=== PATIENT | male | born 1955 | race Caucasian/White ===

== ENCOUNTER → 2019-12-06 11:21 | Outpatient (CLI) | payer MEDICARE, SELFPAY ==
--- NOTE | ~2019-12-06 | XR_ITS ---
XR chest 2V DATE: 12/06/2019 11:32 INDICATION: Hyponatremia, hypoosmolality TECHNIQUE: PA and lateral views COMPARISON: 05/31/2015 PA and lateral chest FINDINGS: Heart size is within upper normal range. There is aortic calcification and tortuosity. No h ilar or mediastinal enlargement. No pulmonary infiltrate or consolidation, pleural effusion or pulmon anisa vascular congestion or pneumothorax. There is degenerative spurring of the thoracic spine. IMPRESSION: No active cardiopulmonary disease or significant change since 05/31/2015 Reviewed, dictated and finalized at location B. 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
== END ==
PROVIDERS: PCP Internal Medicine; Visit Provider Internal Medicine
DX: E87.1 Hypo-osmolality and hyponatremia (principal)
CPT/HCPCS: 71046

== ENCOUNTER 2020-06-04 10:48 | Outpatient (CLI) | payer MEDICARE, SELFPAY ==
--- NOTE | ~2020-06-04 | US_ITS ---
EXAMINATION: US venous doppler [facility] EXAM DATE: 06/04/2020 11:30 INDICATION: Edema, swelling. TECHNIQUE: Multiple grayscale, color flow and Doppler images of the left lower extremity deep venous system were obtained and reviewed. Comparison is made to prior examination from 07/28/2019. FINDINGS: The left common femoral, femoral and profunda veins demonstrate normal color flow, respirat ory variation, augmentation and compressibility. Compressibility, color flow confirmed within the le ft popliteal, posterior tibial, peroneal, and greater saphenous veins. IMPRESSION: 1. No left lower extremity deep venous thrombosis. Reviewed, dictated and finalized at location A.
== END 2020-06-04 10:49 | disposition home or self-care (01) ==
LOC: ANHIMG 10:56
PROVIDERS: PCP Internal Medicine; Visit Provider Internal Medicine
DX: R60.9 Edema, unspecified (principal)
CPT/HCPCS: 93971

== ENCOUNTER 2020-07-01 08:00 | Outpatient (RCR) | payer MEDICARE, SELFPAY ==
--- NOTE | 2020-06-07 16:03 | PTOPEVAL ---
PHYSICAL THERAPY EVALUATION AND PLAN OF CARE 06-07-2020 The PT evaluation was completed and the plan of care is scheduled for 3 x/wk for 5 weeks. Thank you for referring Remington Mathur to [facility]. Please review, sign, date and return this plan of care MIGUELITO. I agree with and certify that the following plan of care is medically necessary. Referring Physician Date Attending Provider: ESTELA Kamara *PT Outpatient Evaluation Start: 06/07/20 14:58 Document 06/07/20 15:15 GUNNER (Rec: 06/07/20 16:03 GUNNER [id number]) Therapy Assessment Status Assessment Status Assessment Status Evaluation Outpatient Past Medical History Past Medical History Source of Past Medical History Patient Neurological History Hx Transient Ischemic Attacks (TIA) Yes: no residual weakness Cardiovascular History Hx Cardiac Arrhythmia Yes: meds Hx Cardiac Catheterization Yes Hx Hypercholesterolemia Yes Hx Hypertension Yes: meds Respiratory History Hx Other Respiratory Disorders Yes: smoker Gastrointestinal History Hx Other Gastrointestinal Disorders Yes: bladder cancer, bladder washe s- 12-13 yr ago Genitourinary History Hx Genitourinary Disorders No Significant History Endocrine History Hx Endocrine Disorders No Significant History Other History Hx Other Medical Conditions Yes: obesity Evaluation Information Problem Diagnosis L LE lymphdedema Onset April 15 2020 Prior Level of Function Activity Level (Last 3 Months) Occupation retired Activity of Daily Living Ability Independent Indoor/Home Mobility Independent Community Mobility Independent Stairs Ability Independent Functional Cognition (Planning, Shopping Independent , Taking Medications) Cooking Yes Cleaning Yes Laundry Yes Shopping Yes Driving Yes Pain Assessment Timing of Pain Assessment Timing of Pain Assessment Assessment Self Report Self Report Pain Level 0 Pain Score Pain Score 0: Self Report Lower Extremity Range of Motion General Lower Extremity Range of Motion Reason Not Measured WNL/Left,WNL/Right Lower Extremity Muscle Strength Testing General Lower Extremity Strength Reason Not Measured WNL/Left,WNL/Right Transfer Assessment Bed Transfer Assessment Sit to Stand Bed Transfer Ability Independent Stand to Sit Bed Transfer Ability Independent Bed Mobility Assessment Bed Mobility Bed Type Mat Overall Bed Mobility Ability Independent Gait Assessment Gait Assessment Ambulation Assistive Devices None Ambulation Ability Independent Lymphedema Evaluation Lymphedema Evalua
--- NOTE | 2020-07-12 09:23 | PCPTNOTE ---
PHYSICAL THERAPY DISCHARGE 07-12-2020 Attending Provider: Sydnee Charles, JESSICA-C Patient:Remington Mathur Date of :1955 Mr. Mathur has received 9 PT sessions, from June 07 to July 01 for the diagnosis of L LE lymphedema. He has improved with circumferential measurement of L LE, from bottom of foot up to 64 cm, is 702.3 cm, reduction of 36.5 cm from initial evaluation. The tissue of his lower leg is without redness and has good skin integrity. Rodney has a new compression knee high, 30-40 mmHg to manage his lymphedema--and is independent with it. And has been educated on self manual lymph drainage and LE exercises. The [employer] is processing the order for him to obtain a home intermittent compression pump to assist him with managing his lymphedema. Rodney will be discharged at this time, the PT goals were achieved. Thank you for referring Mr. Mathur to [facility]. Please review, sign, date and return this discharge summary MIGUELITO. I have been updated about the patient's current status and I agree with discharge from the above service at this time. Referring Physician Date
== END 2020-07-12 11:34 | disposition home or self-care (01) ==
LOC: ANHPT 08:00
PROVIDERS: PCP Internal Medicine; Visit Provider Clinical Nurse Specialist
DX: I89.0 Lymphedema, not elsewhere classified (principal)
CPT/HCPCS: 29581; 97140; 97161

== ENCOUNTER 2020-10-04 10:40 | Outpatient (CLI) | payer MEDICARE, SELFPAY ==
[2020-10-04 11:30] LABS: Anion Gap 4 mmol/L (8-16); Blood Urea Nitrogen 14 mg/dL (9-20); Calcium 9.1 mg/dL (8.4-10.2); Carbon Dioxide 31 mmol/L (22-30); Chloride 91 mmol/L (98-107); Estimated Glomerular Filt Rate > 60; Glucose 113 mg/dL (75-110); Potassium 4.6 mmol/L (3.4-5.0); Sodium 126 mmol/L (137-145)
[2020-10-04 11:32] LABS: Alanine Aminotransferase 29 U/L (4-50); Albumin Level 3.9 g/dL (3.5-5.1); Alkaline Phosphatase 55 U/L (38-126); Aspartate Amino Transferase 31 U/L (17-59); Bilirubin,Total 0.6 mg/dL (0.2-1.3)
[2020-10-04 13:21] LABS: Folic Acid 9.1 ng/mL (2.76->20)
[2020-10-04 13:37] LABS: Basophils Absolute Auto 0.1 K/mm3 (0.0-0.1); Basophils Percent Auto 0.7 % (0.2-1.2); Eosinophils Absolute Auto 0.3 K/mm3 (0-0.3); Hematocrit 44.2 % (42.0-52.0); Hemoglobin 15.4 g/dL (14.0-18.0); Immature Granulocyte Absolute 0.12 K/mm3 (0.00-0.031); Immature Granulocyte Percent A 1.4 % (0-0.5); Lymphocytes Absolute Auto 1.34 K/mm3 (0.9-3.2); Lymphocytes Percent Auto 15.8 % (18.3-44.2); Mean Corpuscular HGB Conc 34.8 g/dl (32-36); Mean Corpuscular Hemoglobin 33.4 pg (26-34); Mean Corpuscular Volume 95.9 fl (80-100); Mean Platelet Volume 8.9 fl (7.4-10.4); Monocytes Absolute Auto 1.3 K/mm3 (0.1-0.6); Monocytes Percent Auto 15.2 % (2.6-8.5); Neutrophils Absolute Auto 5.4 K/mm3 (1.3-6.7); Neutrophils Percent Auto 63.9 % (45.5-73.1); Platelet Count Result 230 k/mm3 (150-375); Red Blood Count 4.61 M/mm3 (4.6-6.20); Red Cell Distribution Width 13.2 % (11.5-14.5); White Blood Count 8.5 K/mm3 (4.5-10.0)
== END 2020-10-04 10:41 | disposition home or self-care (01) ==
LOC: ANHLAB 10:43
PROVIDERS: Clinical Nurse Specialist; PCP Internal Medicine; Visit Provider Internal Medicine
DX: E87.1 Hypo-osmolality and hyponatremia (principal); R60.9 Edema, unspecified; I48.91 Unspecified atrial fibrillation; Z51.81 Encounter for therapeutic drug level monitoring; Z79.01 Long term (current) use of anticoagulants; R41.3 Other amnesia
CPT/HCPCS: 36415; 80048; 80076; 82607; 82746; 84443; 85025

== ENCOUNTER 2021-06-03 11:09 | Outpatient (CLI) | payer MEDICARE, SELFPAY ==
[2021-06-03 11:39] LABS: Basophils Absolute Auto 0.1 K/mm3 (0.0-0.1); Basophils Percent Auto 0.5 % (0.2-1.2); Eosinophils Absolute Auto 0.3 K/mm3 (0-0.3); Eosinophils Percent Auto 3.2 % (0-4.4); Hematocrit 47.2 % (42.0-52.0); Immature Granulocyte Absolute 0.15 K/mm3 (0.00-0.031); Immature Granulocyte Percent A 1.5 % (0-0.5); Lymphocytes Absolute Auto 1.55 K/mm3 (0.9-3.2); Lymphocytes Percent Auto 15.5 % (18.3-44.2); Mean Corpuscular HGB Conc 33.9 g/dl (32-36); Mean Corpuscular Hemoglobin 32.2 pg (26-34); Mean Platelet Volume 8.4 fl (7.4-10.4); Monocytes Absolute Auto 1.3 K/mm3 (0.1-0.6); Monocytes Percent Auto 13.2 % (2.6-8.5); Neutrophils Absolute Auto 6.6 K/mm3 (1.3-6.7); Neutrophils Percent Auto 66.1 % (45.5-73.1); Platelet Count Result 216 k/mm3 (150-375); Red Blood Count 4.97 M/mm3 (4.6-6.20); Red Cell Distribution Width 12.3 % (11.5-14.5)
[2021-06-03 11:53] LABS: Alanine Aminotransferase 34 U/L (4-50); Albumin Level 4.1 g/dL (3.5-5.1); Alkaline Phosphatase 61 U/L (38-126); Anion Gap 5 mmol/L (8-16); Aspartate Amino Transferase 30 U/L (17-59); Bilirubin,Total 0.8 mg/dL (0.2-1.3); Blood Urea Nitrogen 11 mg/dL (9-20); Calcium 9.4 mg/dL (8.4-10.2); Carbon Dioxide 30 mmol/L (22-30); Chloride 91 mmol/L (98-107); Estimated Glomerular Filt Rate > 60; Glucose 99 mg/dL (65-110); Potassium 4.6 mmol/L (3.4-5.0); Sodium 126 mmol/L (137-145)
[2021-06-03 12:21] LABS: Prostate Specific Antigen 0.2 ng/mL (< OR = 4.0)
== END 2021-06-03 11:10 | disposition home or self-care (01) ==
PROVIDERS: PCP Internal Medicine; Visit Provider Clinical Nurse Specialist
DX: I48.91 Unspecified atrial fibrillation (principal); Z12.5 Encounter for screening for malignant neoplasm of prostate
CPT/HCPCS: 36415; 80053; 84153; 84443; 85025; G0103

== ENCOUNTER 2021-06-13 14:22 | Outpatient (CLI) | payer MEDICARE, SELFPAY ==
[2021-06-13 14:54] LABS: Anion Gap 8 mmol/L (8-16); Blood Urea Nitrogen 14 mg/dL (9-20); Calcium 9.7 mg/dL (8.4-10.2); Carbon Dioxide 25 mmol/L (22-30); Chloride 96 mmol/L (98-107); Estimated Glomerular Filt Rate > 60; Glucose 100 mg/dL (65-110); Potassium 4.6 mmol/L (3.4-5.0); Sodium 129 mmol/L (137-145)
== END 2021-06-13 14:23 | disposition home or self-care (01) ==
PROVIDERS: PCP Internal Medicine; Visit Provider Clinical Nurse Specialist
DX: E87.1 Hypo-osmolality and hyponatremia (principal)
CPT/HCPCS: 36415; 80048

== ENCOUNTER → 2021-07-18 08:26 | Outpatient (CLI) | payer MEDICARE, SELFPAY ==
--- NOTE | 2021-08-08 10:36 | WPDSLEEPSTUD ---
Sleep Study Date of Study: 07/18/21 Ordering Provider: Rao Erickson MD Interpreting Physician: Juhi Betancourt MD Sleep Study Type: Polysomnogram Height: 1.68 m Weight: 113.398 kg Body Mass Index: 40.3 Neck Circumference (inches): 20 [place]: 7 Reason for Sleep Study Obstructive sleep apnea with snoring and fatigue Sleep History Remington Mathur is a 66 year old man with snoring, restless sleep, witnessed apneas and daytime fatigue. He has dementia, atrial fibrillation, hypertension and history of several small strokes in the past. His sleep quality is poor. He was not able to complete the sleep questionnaire. [facility] Past Medical History Medical History (Updated 08/13/21 @ 15:19 by Juhi Betancourt MD) Atrial fibrillation Edema of left lower extremity History of multiple strokes Hypertension Memory loss Surgical History Surgical History History of hernia surgery Family History Family History Mother Patient's mother is in good health Social History Social History Smoking status: Former smoker Smoking end date: 11/15/01 Alcohol intake: current Alcohol use details: Pt reports drinking 3-4 beers per day. Medications Home Medications Medication Instructions Recorded Confirmed Type atorvastatin 10 mg tablet 10 mg PO QHS #90 tablet 05/30/21 07/22/21 Rx metoprolol succinate 100 mg 100 mg PO DAILY #90 tablet 06/16/21 07/22/21 Rx tablet,extended release 24 hr lisinopril 40 mg tablet 40 mg PO DAILY #90 tablet 06/24/21 07/22/21 Rx rivaroxaban 20 mg tablet 20 mg PO DAILY #90 tablet 07/28/21 Rx spironolactone 25 mg tablet 25 mg PO DAILY #90 tablet 07/28/21 Rx Sleep Procedure This test was performed using the [employer] multiple channel system including EOG, EEG, submental EMG, EKG, nasal and oral airflow using thermistors and nasal pressure sensors, chest and abdominal belts for body position data, and pulse oximetry. Video monitoring was also performed. The study was scored using CMS guidelines. Sleep Architecture The recording time was 371.6 minutes. Sleep time 145.5 minutes. Sleep efficiency 39.2 %. Sleep latency 19.9 minutes. REM latency 284 minutes. There were 47 awakenings. The patient spent 58.6 % of the study awake after sleep onset, 206 minutes. Sleep architecture showed 11.4% stage 1 sleep, 26% stage 2 sleep, absence of stage 3 sleep, and 4% stage REM. The patient spent 6% of the study in supine position. The patient had 1 REM cycle towards the end of the study. Respiratory Analysis The apnea-hypopnea index is 56.1. In non-supine REM, there were 1 obstructive apnea and 9 obstructive hypopneas for an index of 42.9. In supine non-REM, there were 1 obstructive apnea and 23 obstructive hypopneas for an index of 68.8. In non-supine non-REM, there were no apneas and 102 obstructive hypopneas for an index of 55.4. There were no central apneas or hypopneas. The supine index was 68.8, non-supine index 53.9. Arousals There were 122 arousals for an index of 19.7. There was 1 apnea for an index of 0.2. There were 41 hypopneas for an index of 6.6, 35 snores for an index of 5.7, 39 spontaneous arousals for an index of 6.3, and 6 limb movements for an index of 1.0. Periodic Limb Movements There were 40 isolated limb movements for an index of 16.5 and no periodic limb movements. Oximetry Data Lowest oxygen saturation is 62%. Mean saturation is 88%. The patient had 65.1 desaturations below 88%, 17.5% of the study. The patient had 140 desaturations of 4% or greater for an index of 22.6. Snoring Profile Snoring was moderate. Cardiac Profile EKG showed normal sinus rhythm and sinus bradycardia, mean heart rate 85 bpm. EEG Profile Unremarkable, no evidence of seizures. 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
[2021-08-13 15:22] VITALS: BMI 40.3
== END ==
PROVIDERS: PCP Internal Medicine; Visit Provider Otolaryngology
DX: G47.33 Obstructive sleep apnea (adult) (pediatric) (principal); Z68.41 Body mass index [BMI] 40.0-44.9, adult
CPT/HCPCS: 95810

== ENCOUNTER 2021-07-22 09:44 | Outpatient (CLI) | payer MEDICARE, SELFPAY ==
[2021-07-22 11:54] LABS: Anion Gap 6 mmol/L (8-16); Blood Urea Nitrogen 12 mg/dL (9-20); Calcium 9.3 mg/dL (8.4-10.2); Carbon Dioxide 30 mmol/L (22-30); Chloride 95 mmol/L (98-107); Estimated Glomerular Filt Rate > 60; Glucose 103 mg/dL (65-110); Potassium 4.4 mmol/L (3.4-5.0); Sodium 131 mmol/L (137-145)
== END 2021-07-22 09:45 | disposition home or self-care (01) ==
PROVIDERS: PCP Internal Medicine; Visit Provider Internal Medicine
DX: E87.1 Hypo-osmolality and hyponatremia (principal)
CPT/HCPCS: 36415; 80048

== ENCOUNTER 2021-08-27 07:41 | Outpatient (CLI) | payer MEDICARE, SELFPAY ==
--- NOTE | 2021-09-09 13:02 | WPDSLEEPSTUD ---
Sleep Study Date of Study: 08/27/21 <Ana Barcenas DO - Last Filed: 09/09/21 14:06> Ordering Provider: Rao Erickson MD <Ana Barcenas DO - Last Filed: 09/09/21 14:06> Interpreting Physician: Ana Barcenas DO <Ana Barcenas DO - Last Filed: 09/09/21 14:06> Sleep Study Type: CPAP Titration <Ana Barcenas DO - Last Filed: 09/09/21 14:06> Height: 1.68 m <Ana Barcenas DO - Last Filed: 09/09/21 14:06> Weight: 111.13 kg <Ana Barcenas DO - Last Filed: 09/09/21 14:06> Body Mass Index: 39.5 <Ana Barcenas DO - Last Filed: 09/09/21 14:06> Neck Circumference (inches): 20 <Ana Barcenas DO - Last Filed: 09/09/21 14:06> [place]: 12 <Ana Barcenas DO - Last Filed: 09/09/21 14:06> Reason for Sleep Study Patient had a PSG on 07/18/2021 that showed severe obstructive sleep apnea with an apnea-hypopnea index of 56.1, worse in supine sleep.He desaturated to 62%, had a mean saturation of 88% and spent 65 minutes or 17.5% of the night below 88%. <Ana Barcenas DO - Last Filed: 09/09/21 14:06> Sleep History The patient has a 66-year-old male with hypertension, atrial fibrillation and history of multiple strokes that had a PSG on 07/18/2021 that showed severe sleep apnea with significant desaturations. It was recommended that the patient an in-lab PAP titration. The patient is currently retired. He denies that he awakens from sleep short of breath. He denies awakening at night with heartburn, belching or cough. He denies having trouble sleeping when he has a cold. he denies waking up gasping for air throughout the night. He denies having breathing problems at night observed by others. He denies heart palpitations or irregular heartbeats throughout the night. He frequently falls asleep during the day and rarely while driving. He denies sleep paralysis, cataplexy and hypnagogic / hypnopompic hallucinations. He denies having nightmares. He often has thoughts racing through his mind. He denies feeling sad or depressed but occasionally feels anxious. He denies noticing parts of his body jerk. He denies kicking throughout the night. He denies crawling and aching feelings in his legs as well as leg pain throughout the night. He denies grinding his teeth during sleep and awakening with morning jaw pain. He denies being bothered by pain during the day and being awakened by pain during the night. He denies waking up feeling stiff in the morning with sore and achy muscles. He goes to bed at 11:00 p.m. on weekdays and weekends. It takes him 5 minutes to fall asleep. He typically wakes up once per night to use the restroom and could fall asleep relatively quickly. He wakes up between 7-8 a.m. on the weekdays and weekends. Typically gets 7-8 hours of sleep per night. He typically stays in bed for 5 minutes after waking up in the morning. He currently lives alone. He does not consume any caffeinated beverages lives in 2 hours of bedtime. He does not do any physical exertion before bedtime. He will watch television before falling asleep. He does take naps in the afternoon or evening and they are refreshing. The patient quit smoking 12 months ago. He will drink 4 caffeinated beverages per day. He denies alcohol and recreational drug use. <Ana Barcenas DO - Last Filed: 09/09/21 14:06> [facility] Past Medical History Medical History: Medical History Atrial fibrillation Edema of left lower extremity History of multiple strokes Hypertension Memory loss <Ana Barcenas DO - Last Filed: 09/09/21 14:06> Surgical History Surgical History: Surgical History History of hernia surgery <Ana Barcenas DO - Last Filed: 09/09/21 14:06> Family History Family History: Family Hi
[2021-09-09 13:04] VITALS: BMI 39.5
== END 2021-08-28 07:16 | disposition home or self-care (01) ==
LOC: ANHCSM 07:42
PROVIDERS: PCP Internal Medicine; Visit Provider Otolaryngology
DX: G47.33 Obstructive sleep apnea (adult) (pediatric) (principal); R06.83 Snoring
CPT/HCPCS: 95811

== ENCOUNTER 2022-01-07 14:36 | Outpatient (CLI) | payer MEDICARE, SELFPAY ==
[2022-01-07 15:23] LABS: Basophils Absolute Auto 0.1 K/mm3 (0.0-0.1); Basophils Percent Auto 0.6 % (0.2-1.2); Eosinophils Absolute Auto 0.4 K/mm3 (0-0.3); Eosinophils Percent Auto 5.1 % (0-4.4); Hematocrit 42.9 % (42.0-52.0); Hemoglobin 14.3 g/dL (14.0-18.0); Immature Granulocyte Absolute 0.13 K/mm3 (0.00-0.031); Immature Granulocyte Percent A 1.6 % (0-0.5); Lymphocytes Absolute Auto 1.41 K/mm3 (0.9-3.2); Lymphocytes Percent Auto 16.9 % (18.3-44.2); Mean Corpuscular HGB Conc 33.3 g/dl (32-36); Mean Corpuscular Hemoglobin 30.9 pg (26-34); Mean Corpuscular Volume 92.7 fl (80-100); Mean Platelet Volume 8.9 fl (7.4-10.4); Monocytes Absolute Auto 0.9 K/mm3 (0.1-0.6); Monocytes Percent Auto 10.9 % (2.6-8.5); Neutrophils Absolute Auto 5.4 K/mm3 (1.3-6.7); Neutrophils Percent Auto 64.9 % (45.5-73.1); Platelet Count Result 253 k/mm3 (150-375); Red Blood Count 4.63 M/mm3 (4.6-6.20); Red Cell Distribution Width 13.2 % (11.5-14.5); White Blood Count 8.4 K/mm3 (4.5-10.0)
[2022-01-07 15:32] LABS: Alanine Aminotransferase 34 U/L (4-50); Albumin Level 3.8 g/dL (3.5-5.1); Alkaline Phosphatase 80 U/L (38-126); Anion Gap 6 mmol/L (8-16); Aspartate Amino Transferase 32 U/L (17-59); Bilirubin,Total 0.3 mg/dL (0.2-1.3); Blood Urea Nitrogen 15 mg/dL (9-20); Calcium 8.4 mg/dL (8.4-10.2); Carbon Dioxide 30 mmol/L (22-30); Chloride 98 mmol/L (98-107); Cholesterol 138 mg/dL (0-200); Estimated Glomerular Filt Rate > 60; Glucose 182 mg/dL (65-110); HDL Direct 49 mg/dL; Potassium 4.5 mmol/L (3.4-5.0); Sodium 134 mmol/L (137-145); Triglycerides 177 mg/dL (<150)
[2022-01-07 15:41] LABS: Hemoglobin A1C 6.3 % (<5.7)
[2022-01-07 15:43] LABS: LDL Cholesterol Direct 55 mg/dL
== END 2022-01-07 14:37 | disposition home or self-care (01) ==
PROVIDERS: PCP Internal Medicine; Visit Provider Internal Medicine
DX: R73.9 Hyperglycemia, unspecified (principal); I48.91 Unspecified atrial fibrillation; Z79.01 Long term (current) use of anticoagulants; E87.1 Hypo-osmolality and hyponatremia; E66.01 Morbid (severe) obesity due to excess calories
CPT/HCPCS: 36415; 80053; 80061; 83036; 85025

== ENCOUNTER 2022-07-13 11:09 | Outpatient (CLI) | payer MEDICARE, SELFPAY ==
[2022-07-13 18:24] LABS: Basophils Absolute Auto 0.1 K/mm3 (0.0-0.1); Basophils Percent Auto 0.5 % (0.2-1.2); Eosinophils Absolute Auto 0.5 K/mm3 (0-0.3); Eosinophils Percent Auto 5.3 % (0-4.4); Hematocrit 45.7 % (42.0-52.0); Hemoglobin 14.8 g/dL (14.0-18.0); Immature Granulocyte Absolute 0.07 K/mm3 (0.00-0.031); Immature Granulocyte Percent A 0.7 % (0-0.5); Lymphocytes Absolute Auto 1.93 K/mm3 (0.9-3.2); Mean Corpuscular HGB Conc 32.4 g/dl (32-36); Mean Corpuscular Hemoglobin 30.8 pg (26-34); Mean Corpuscular Volume 95.2 fl (80-100); Mean Platelet Volume 9.1 fl (7.4-10.4); Monocytes Absolute Auto 1.3 K/mm3 (0.1-0.6); Monocytes Percent Auto 13.2 % (2.6-8.5); Neutrophils Absolute Auto 6.2 K/mm3 (1.3-6.7); Neutrophils Percent Auto 61.3 % (45.5-73.1); Platelet Count Result 251 k/mm3 (150-375); Red Cell Distribution Width 13.2 % (11.5-14.5); White Blood Count 10.1 K/mm3 (4.5-10.0)
[2022-07-13 18:53] LABS: Alanine Aminotransferase 33 U/L (6-50); Albumin Level 4.3 g/dL (3.5-5.1); Alkaline Phosphatase 71 U/L (38-126); Anion Gap 1 mmol/L (8-16); Aspartate Amino Transferase 44 U/L (17-59); Bilirubin,Total 0.5 mg/dL (0.2-1.3); Blood Urea Nitrogen 17 mg/dL (9-20); Carbon Dioxide 31 mmol/L (22-30); Chloride 96 mmol/L (98-107); Estimated Glomerular Filt Rate > 60; Glucose 94 mg/dL (65-110); Potassium 4.4 mmol/L (3.4-5.0); Sodium 128 mmol/L (137-145)
== END 2022-07-13 11:10 | disposition home or self-care (01) ==
LOC: ANHGOSHLAB 11:14
PROVIDERS: PCP Internal Medicine; Visit Provider Internal Medicine
DX: R73.9 Hyperglycemia, unspecified (principal); Z79.01 Long term (current) use of anticoagulants; I48.91 Unspecified atrial fibrillation; E87.1 Hypo-osmolality and hyponatremia
CPT/HCPCS: 36415; 80053; 83036; 85025

== ENCOUNTER 2022-07-15 09:40 | Outpatient (CLI) | payer MEDICARE, SELFPAY ==
[2022-07-15 20:05] LABS: Sodium Urine Random 51 meq/L
[2022-07-15 20:37] LABS: Cortisol Random 9.74 ug/dL
[2022-07-18 12:37] LABS: Osmolality, Urine 371 mOsm/kg (50-1200)
== END 2022-07-15 09:41 | disposition home or self-care (01) ==
LOC: ANHGOSHLAB 09:41
PROVIDERS: PCP Internal Medicine; Visit Provider Internal Medicine
DX: E87.1 Hypo-osmolality and hyponatremia (principal)
CPT/HCPCS: 36415; 82533; 83935; 84300

== ENCOUNTER → 2022-12-29 11:13 | Outpatient (CLI) | payer MEDICARE, SELFPAY ==
--- NOTE | ~2022-12-29 | XR_ITS ---
EXAM: XR knee LT 3V DATE: 12/29/2022 11:46 HISTORY: M25.562 - Pain in left knee . COMPARISON: None available. FINDINGS: Normal mineralization. No fracture or dislocation. No lytic or blastic lesion. Severe medi al joint space narrowing. Mild tricompartmental osteophytosis. Quadriceps enthesopathy. No erosion or periosteal change. Vascular calcification within normal limits. IMPRESSION: Tricompartmental left knee osteoarthritis, severe in the medial compartment. Reviewed, dictated and finalized at location K. RVISOR SCREEN MAKING IMPRESSION: Tricompartmental left knee osteoarthritis, severe in the medial com partment.
== END ==
PROVIDERS: PCP Internal Medicine; Visit Provider Nurse Practitioner
DX: M17.12 Unilateral primary osteoarthritis, left knee (principal)
CPT/HCPCS: 73562

== ENCOUNTER 2023-01-07 08:33 | Outpatient (CLI) | payer MEDICARE, SELFPAY ==
[2023-01-07 20:28] LABS: Basophils Absolute Auto 0.1 K/mm3 (0.0-0.1); Basophils Percent Auto 0.7 % (0.2-1.2); Eosinophils Absolute Auto 0.5 K/mm3 (0-0.3); Eosinophils Percent Auto 4.4 % (0-4.4); Hematocrit 50.1 % (42.0-52.0); Hemoglobin 15.9 g/dL (14.0-18.0); Immature Granulocyte Absolute 0.23 K/mm3 (0.00-0.031); Immature Granulocyte Percent A 2.2 % (0-0.5); Lymphocytes Absolute Auto 2.26 K/mm3 (0.9-3.2); Lymphocytes Percent Auto 22.1 % (18.3-44.2); Mean Corpuscular HGB Conc 31.7 g/dl (32-36); Mean Corpuscular Hemoglobin 30.8 pg (26-34); Mean Corpuscular Volume 96.9 fl (80-100); Mean Platelet Volume 9.1 fl (7.4-10.4); Monocytes Absolute Auto 1.1 K/mm3 (0.1-0.6); Monocytes Percent Auto 10.7 % (2.6-8.5); Neutrophils Absolute Auto 6.1 K/mm3 (1.3-6.7); Neutrophils Percent Auto 59.9 % (45.5-73.1); Platelet Count Result 250 k/mm3 (150-375); Red Blood Count 5.17 M/mm3 (4.6-6.20); Red Cell Distribution Width 13.5 % (11.5-14.5); White Blood Count 10.2 K/mm3 (4.5-10.0)
[2023-01-07 20:40] LABS: Appearance Urine Clear (Clear); Bilirubin Urine Negative (Negative); Blood Urine Negative (Negative); Color Urine Yellow (Yellow); Glucose Urine UA Negative (Negative); Ketones Urine Negative (Negative); Leukocyte Esterase Ur Negative LEU/UL (NEGATIVE); Nitrate Urine Negative (Negative); Protein Urine Trace mg/dL (Negative); Specific Grav Ur 1.015 (1.001-1.035); Urobilinogen Urine 0.2 mg/dL (<2.0); pH Urine 6.5 (5.0-9.0)
[2023-01-07 20:58] LABS: WBC Urine 0-3 /hpf (0-3)
[2023-01-07 21:01] LABS: Add Urine Microscopic? YES
[2023-01-07 21:18] LABS: Alanine Aminotransferase 48 U/L (6-50); Alkaline Phosphatase 73 U/L (38-126); Anion Gap 5 mmol/L (8-16); Aspartate Amino Transferase 54 U/L (17-59); Bilirubin,Total 0.7 mg/dL (0.2-1.3); Blood Urea Nitrogen 20 mg/dL (9-20); Calcium 8.6 mg/dL (8.4-10.2); Carbon Dioxide 32 mmol/L (22-30); Chloride 99 mmol/L (98-107); Cholesterol 131 mg/dL (0-200); Estimated Glomerular Filt Rate > 60; Glucose 90 mg/dL (65-110); HDL Direct 52 mg/dL; Potassium 4.7 mmol/L (3.4-5.0); Sodium 136 mmol/L (137-145); Triglycerides 99 mg/dL (<150)
[2023-01-07 21:29] LABS: LDL Cholesterol Direct 50 mg/dL
[2023-01-07 21:32] LABS: Prostate Specific Antigen 0.3 ng/mL (< OR = 4.0)
[2023-01-07 22:19] LABS: Hemoglobin A1C 6.4 % (<5.7)
== END 2023-01-07 08:34 | disposition home or self-care (01) ==
LOC: ANHGOSHLAB 08:34
PROVIDERS: PCP Internal Medicine; Visit Provider Internal Medicine
DX: Z12.5 Encounter for screening for malignant neoplasm of prostate (principal); Z79.01 Long term (current) use of anticoagulants; I48.91 Unspecified atrial fibrillation; E87.1 Hypo-osmolality and hyponatremia; E66.01 Morbid (severe) obesity due to excess calories; R73.9 Hyperglycemia, unspecified
CPT/HCPCS: 36415; 80053; 80061; 81001; 83036; 84153; 85025; G0103

== ENCOUNTER 2023-04-27 09:20 | Outpatient (CLI) | payer MEDICARE, SELFPAY ==
--- NOTE | 2023-04-29 08:38 | SLEEP ---
Paper documentation exists on this patient due to [employer] downtime on 04/28/23 from to [[id number]] .
--- NOTE | 2023-05-13 12:55 | WPDSLEEPSTUD ---
Sleep Study Date of Study: 04/27/23 Ordering Provider: Ana Barcenas DO Interpreting Physician: Juhi Betancourt MD Sleep Study Type: BiPAP Titration Height: 1.68 m Weight: 124.738 kg Body Mass Index: 44.4 Neck Circumference (inches): 20 [place]: 13 Reason for Sleep Study Patient hasn?t been using BiPAP for several months, stated he felt like he wasn?t getting enough pressure. Weight gain of 30 lb since last PAP titration study. * 07/18/21 ? PSG showed severe AMY with AHI 56.1, worse in supine, desaturation to 62%. * 08/27/21 ? BiPAP titration ? Titrated to BiPAP 24/20cm with residual AHI 10.8. The patient was in REM sleep for majority of that pressure. Sleep History Remington Mathur is a 67-year-old male with history of atrial fibrillation, dementia, multiple CVAs and severe obstructive sleep apnea who has not been using his BiPAP machine for over 6 months. He presented to the sleep lab for a BiPAP titration. He never awakens from sleep short of breath. He never awakens at night with heartburn, belching or cough. He occasionally snores and rarely snores loud enough for others to complain. He never has trouble sleeping when he has a cold. He never wakes up gasping for breath during the night. He never has breathing problems at night. He rarely sweats excessively at night. He frequently falls asleep during the day. He frequently falls asleep involuntarily and never falls asleep while driving. He never notices his heart pounding or beating irregularly during the night. He never experiences loss of muscle tone with strong emotion. He never feels paralyzed on waking or falling asleep. He does not experience vivid dreams upon waking or falling asleep. He does not feel afraid of going to sleep. He never has nightmares. He occasionally recalls his dreams. He occasionally has thoughts racing through his mind. He does not feel sad or depressed. He does not feel anxiety or worry about things. He never notices parts of his body jerk. He never kicks during the night. He never feels crawling or aching feelings in his legs. He does not grind his teeth during sleep and or wake up with morning jaw pain. He rarely feels bothered by pain during the day and is never awakened by pain during the night. Normal bedtime is around 11pm on the weekdays and same on the weekends, usually falling asleep in 5 minutes. He typically gets about 8 hours of sleep per night. His wake-up time is around 7am on the weekdays and same on the weekends. He typically wakes up around 2 times per night and typically awake for less than 5 minutes each time. He sometimes takes naps in the afternoon or evening. Habits: Former tobacco smoker. Drinks about 3 caffeinated beverages per day. Occasional alcohol use. No recreational substance use. [facility] Past Medical History Medical History Atrial fibrillation Edema of left lower extremity History of multiple strokes Hypertension Memory loss Morbid obesity due to excess calories Surgical History Surgical History History of hernia surgery Family History Family History Mother Patient's mother is in good health Social History Social History Smoking status: Former smoker Smoking end date: 11/15/01 Alcohol intake: former Lack of Transportation: No Lack of Food: Never True Current Housing: I Have Housing Concerned About Future Housing: No Difficulty Paying Gas/Electric Bills: No Difficulty Paying for Meds: No Currently Unemployed: No Education: High School Diploma/GED Difficulty w/ Childcare or Family Care: No Medications Home Medications Medication Instructions Recorded Confirmed Type lisinopril 40 mg tablet 40 mg PO DAILY #90 tabs 12/02/22 04/21/23 Rx rivaroxaban 20 mg tablet (Xa
[2023-05-13 14:46] VITALS: BMI 44.4
== END 2023-04-28 08:07 | disposition home or self-care (01) ==
LOC: ANHCSM 09:21
PROVIDERS: PCP Family Medicine; Visit Provider Family Medicine
DX: G47.33 Obstructive sleep apnea (adult) (pediatric) (principal); Z68.41 Body mass index [BMI] 40.0-44.9, adult
CPT/HCPCS: 95811

== ENCOUNTER 2023-09-20 13:32 | Outpatient (CLI) | payer MEDICARE, SELFPAY ==
[2023-09-20 19:31] LABS: Basophils Absolute Auto 0.1 K/mm3 (0.0-0.1); Basophils Percent Auto 0.7 % (0.2-1.2); Eosinophils Absolute Auto 0.7 K/mm3 (0-0.3); Eosinophils Percent Auto 6.8 % (0-4.4); Hematocrit 45.8 % (42.0-52.0); Immature Granulocyte Absolute 0.11 K/mm3 (0.00-0.031); Lymphocytes Absolute Auto 1.88 K/mm3 (0.9-3.2); Lymphocytes Percent Auto 17.2 % (18.3-44.2); Mean Corpuscular HGB Conc 32.8 g/dl (32-36); Mean Corpuscular Hemoglobin 31.4 pg (26-34); Mean Corpuscular Volume 95.8 fl (80-100); Monocytes Absolute Auto 1.3 K/mm3 (0.1-0.6); Monocytes Percent Auto 12.3 % (2.6-8.5); Neutrophils Absolute Auto 6.8 K/mm3 (1.3-6.7); Platelet Count Result 277 k/mm3 (150-375); Red Blood Count 4.78 M/mm3 (4.6-6.20); Red Cell Distribution Width 13.1 % (11.5-14.5); White Blood Count 10.9 K/mm3 (4.5-10.0)
[2023-09-20 21:04] LABS: Alanine Aminotransferase 37 U/L (6-50); Albumin Level 4.2 g/dL (3.5-5.1); Alkaline Phosphatase 78 U/L (38-126); Anion Gap 9 mmol/L (8-16); Aspartate Amino Transferase 39 U/L (17-59); Bilirubin,Total 0.6 mg/dL (0.2-1.3); Blood Urea Nitrogen 22 mg/dL (9-20); Calcium 9.2 mg/dL (8.4-10.2); Carbon Dioxide 28 mmol/L (22-30); Chloride 96 mmol/L (98-107); Cholesterol 142 mg/dL (0-200); Estimated Glomerular Filt Rate > 60; Glucose 103 mg/dL (65-110); HDL Direct 43 mg/dL; Potassium 4.7 mmol/L (3.4-5.0); Sodium 133 mmol/L (137-145); Triglycerides 186 mg/dL (<150)
[2023-09-20 21:15] LABS: LDL Cholesterol Direct 63 mg/dL
[2023-09-20 21:49] LABS: Hemoglobin A1C 6.1 % (<5.7)
== END 2023-09-20 13:33 | disposition home or self-care (01) ==
PROVIDERS: Clinical Nurse Specialist; PCP Internal Medicine; Visit Provider Nurse Practitioner
DX: R73.03 Prediabetes (principal); I10 Essential (primary) hypertension
CPT/HCPCS: 36415; 80053; 80061; 83036; 85025

== ENCOUNTER 2024-03-28 14:21 | Outpatient (CLI) | payer MEDICARE, SELFPAY ==
[2024-03-28 20:05] LABS: Prostate Specific Antigen 0.3 ng/mL (< OR = 4.0)
[2024-03-28 21:26] LABS: Hemoglobin A1C 6.1 % (<5.7)
== END 2024-03-28 14:22 | disposition home or self-care (01) ==
LOC: ANHGOSHLAB 14:23
PROVIDERS: PCP Internal Medicine; Visit Provider Nurse Practitioner
DX: Z12.5 Encounter for screening for malignant neoplasm of prostate (principal); R73.03 Prediabetes
CPT/HCPCS: 36415; 83036; 84153; G0103

== ENCOUNTER 2024-06-29 09:12 | Outpatient (CLI) | payer MEDICARE, SELFPAY ==
--- NOTE | ~2024-06-29 | US_ITS ---
US arterial ankle brachial ind INDICATION: Bilateral lower extremity pain TECHNIQUE: Segmental pressures and plethysmographic and Doppler waveforms of the brachial and lower e xtremity arteries were obtained. COMPARISON: None. FINDINGS: Right and left brachial artery pressures of 162 mm Hg and 173 mm Hg, respectively, are concordant (no rmal difference <= 30 mmHg). The right ankle-brachial index (MONICA) is 0.53 (normal >= 0.9-1.0). The right great toe-brachial index (TBI) is 0.45 (normal >= 0.60). The left MONICA is 0.72. The left TBI is 0.31. IMPRESSION: 1. Diminished bilateral ankle and toe brachial indices consistent with mild-moderate bilateral periph eral arterial disease. Reviewed, dictated and finalized at location B. IMPRESSION: 1. Diminished bilateral ankle and toe brachial indices consistent with mild-mod erate bilateral peripheral arterial disease.
== END 2024-06-29 09:13 | disposition home or self-care (01) ==
PROVIDERS: PCP Internal Medicine; Visit Provider Student in an Organized Health Care Education/Training Program
DX: I73.9 Peripheral vascular disease, unspecified (principal)
CPT/HCPCS: 93922

== ENCOUNTER 2024-09-26 12:01 | Outpatient (CLI) | payer MEDICARE, SELFPAY ==
[2024-09-26 12:33] LABS: Basophils Absolute Auto 0.1 K/mm3 (0.0-0.1); Basophils Percent Auto 0.4 % (0.2-1.2); Eosinophils Absolute Auto 0.4 K/mm3 (0-0.3); Eosinophils Percent Auto 3.2 % (0-4.4); Hematocrit 46.5 % (42.0-52.0); Hemoglobin 15.3 g/dL (14.0-18.0); Immature Granulocyte Absolute 0.13 K/mm3 (0.00-0.031); Immature Granulocyte Percent A 1.1 % (0-0.5); Lymphocytes Absolute Auto 2.04 K/mm3 (0.9-3.2); Lymphocytes Percent Auto 17.8 % (18.3-44.2); Mean Corpuscular HGB Conc 32.9 g/dl (32-36); Mean Corpuscular Volume 94.1 fl (80-100); Mean Platelet Volume 8.8 fl (7.4-10.4); Monocytes Absolute Auto 1.6 K/mm3 (0.1-0.6); Monocytes Percent Auto 13.6 % (2.6-8.5); Neutrophils Absolute Auto 7.3 K/mm3 (1.3-6.7); Neutrophils Percent Auto 63.9 % (45.5-73.1); Platelet Count Result 234 k/mm3 (150-375); Red Blood Count 4.94 M/mm3 (4.6-6.20); Red Cell Distribution Width 13.1 % (11.5-14.5); White Blood Count 11.4 K/mm3 (4.5-10.0)
[2024-09-26 12:38] LABS: Alanine Aminotransferase 31 U/L (6-50); Albumin Level 4.2 g/dL (3.5-5.1); Alkaline Phosphatase 67 U/L (38-126); Anion Gap 7 mmol/L (4-12); Aspartate Amino Transferase 30 U/L (17-59); Bilirubin,Total 0.6 mg/dL (0.2-1.3); Blood Urea Nitrogen 19 mg/dL (9-20); Calcium 9.1 mg/dL (8.4-10.2); Carbon Dioxide 31 mmol/L (22-30); Chloride 95 mmol/L (98-107); Estimated Glomerular Filt Rate 54; Glucose 105 mg/dL (65-110); Sodium 133 mmol/L (137-145)
[2024-09-26 13:08] LABS: Prostate Specific Antigen 0.3 ng/mL (< OR = 4.0)
[2024-09-26 13:22] LABS: Hemoglobin A1C 6.2 % (<5.7)
== END 2024-09-26 12:02 | disposition home or self-care (01) ==
PROVIDERS: PCP Family Medicine; Visit Provider Nurse Practitioner
DX: Z12.5 Encounter for screening for malignant neoplasm of prostate (principal); R73.03 Prediabetes
CPT/HCPCS: 36415; 80053; 83036; 84153; 85025; G0103